=== PATIENT | female | born 1995 | race African-American/Black ===

== ENCOUNTER 2023-10-07 07:05 | Emergency (ER) | payer SELFPAY ==
[~2023-10-07] VITALS: Ht 172.7 cm; Wt 90.0 kg
[2023-10-07 07:09] VITALS: BP 110/67; PULSE 110; RESP 18; TEMP 98.2; O2SAT 100
== END 2023-10-07 08:02 | disposition left against medical advice (07) ==
LOC: ER 07:05
DX: F10.129 Alcohol abuse with intoxication, unspecified (principal); Z53.21 Procedure and treatment not carried out due to patient leaving prior to being seen by health care provider
CPT/HCPCS: 99281